=== PATIENT | male | born 1970 | race Caucasian/White ===

== ENCOUNTER 2017-03-05 18:57 | Emergency (ER) | payer OTHER ==
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
--- NOTE | 2017-03-05 21:18 | RAD ---
Indication: Neck injury after fall. CT of the cervical spine was obtained in the axial plane. Sagittal and coronal reconstructed images were obtained. The skull base demonstrates no fracture. The C1 ring is intact. The vertebral bodies appear normal in height. No evidence of fracture is noted. Disc space narrowing at C5-C6 with dorsal and ventral osteophyte formation is noted. No foraminal stenosis is noted. At C6-C7 spondylitic ridge flattens the thecal sac. No central or foraminal stenosis is noted. IMPRESSION: Degenerative disc disease at C5-C6 and C6-C7. No fracture of the cervical spine is noted.
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
[2017-03-05 21:54] VITALS: BP 133/84
== END 2017-03-05 21:53 | disposition home or self-care (01) ==
LOC: ED 18:57
DX: M79.1 Myalgia (principal); M54.2 Cervicalgia; Z04.1 Encounter for examination and observation following transport accident
CPT/HCPCS: 70450; 72125; 99282

== ENCOUNTER 2017-05-17 10:56 | Emergency (ER) | payer OTHER ==
[2017-05-17] MEDS ORDERED: NS 0.9% 1000 ML* 1,000 ML IV ONE (11:18)
[2017-05-17] MEDS ORDERED: Ketorolac INJ* 30 MG/ML 1 ML VIAL IV PUSH ONE (11:21)
[2017-05-17] MEDS ORDERED: HYDROmorphone* 1 MG/ML 1 ML SYR IV SLOW PU ONE (11:21)
[2017-05-17] MEDS ORDERED: Ondansetron INJ* 2 MG/ML VIAL IV ONE (11:22)
--- NOTE | 2017-05-17 11:24 | ED ---
GI/ HPI - HPI Summary HPI Summary: 46M presents with RLQ pain and hematuria for a couple hours. He does have a history of kidney stones. He states this feels like his kidney stones in the past just much worst. He denies any n/v/d/c. He denies any flank pain. He denies any fever. He states pain radiates from RLQ to right testis. He has not taken anything for pain and says that it is a 10/10. Nothing makes it better. He denies any dysuria but admits to frequency. - History of Current Complaint Chief Complaint: EDAbdPain Time Seen by Provider: 05/17/17 11:17 Stated Complaint: ABD PAIN RIGHT SIDE Pain Intensity: 8 - Allergy/Home Medications Allergies/Adverse Reactions: Allergies Allergy/AdvReac Type Severity Reaction Status Date / Time Unable to Obtain Allergy Verified 05/17/17 11:02 PMH/Surg Hx/FS Hx/Imm Hx Endocrine/Hematology History: Denies: Hx Anticoagulant Therapy GI History: Reports: Hx Ulcer History: Reports: Hx Kidney Stones Infectious Disease History: No Infectious Disease History: Denies: Traveled Outside the [place] in Last 30 Days - Family History Known Family History: Positive: None, Unknown Negative: Cardiac Disease - Social History Alcohol Use: None Hx Substance Use: Yes Substance Use Type: Reports: Marijuana Hx Tobacco Use: Yes Smoking Status (MU): Heavy Every Day Tobacco Smoker Review of Systems Negative: Fever Negative: Chest Pain Negative: Shortness Of Breath Positive: Abdominal Pain - RLQ pain. Negative: Vomiting, Diarrhea, Nausea Positive: hematuria. Negative: flank pain All Other Systems Reviewed And Are Negative: Yes Physical Exam Triage Information Reviewed: Yes Vital Signs On Initial Exam: Initial Vitals Temp Pulse Resp BP Pulse Ox 98.5 F 60 20 139/71 100 05/17/17 10:58 05/17/17 10:58 05/17/17 10:58 05/17/17 10:58 05/17/17 10:58 Vital Signs Reviewed: Yes Appearance: Positive: Pain Distress Skin: Positive: Warm, Dry Head/Face: Positive: Normal Head/Face Inspection Eyes: Positive: Normal, Conjunctiva Clear Respiratory/Lung Sounds: Positive: Clear to Auscultation, Breath Sounds Present Cardiovascular: Positive: Normal, RRR Abdomen Description: Positive: Soft, Other: - tenderness in RLQ. Negative: CVA Tenderness (R), CVA Tenderness (L) Bowel Sounds: Positive: Present - [place] Coma Scale Coma Scale Total: 15 Diagnostics - Vital Signs Vital Signs Temp Pulse Resp BP Pulse Ox 05/17/17 10:58 98.5 F 60 20 139/71 100 - Laboratory Result Diagrams: 05/17/17 11:25 05/17/17 11:25 Lab Statement: Any lab studies that have been ordered have been reviewed, and results considered in the medical decision making process. - CT abd CT Interpretation: Positive (See Comments) - IMPRESSION: RIGHT HYDRONEPHROSIS WITH MULTIPLE CALCULI IN THE RIGHT RENAL COLLECTING SYSTEM. THERE IS A 2 MM CALCULI IN THE RIGHT URETEROVESICULAR JUNCTION WITH MILD HYDROURETER. APPENDIX APPEARS NORMAL. CT Interpretation Completed By: Radiologist - Ultrasound No standard instances Ultrasound Interpretation: Positive (See Comments) Ultrasound Interpretation Completed By: Radiologist Re-Evaluation - Re-Evaluation First Eval Re-Evaluation Time: 12:45 Change: Improved Comment: feeling well enough to go home GIGU Course/Dx - Course Course Of Treatment: 46M presents with RLQ pain and hematuria for a couple hours. He does have a history of kidney stones. He states this feels like his kidney stones in the past just much worst. He denies any n/v/d/c. He denies any flank pain. He denies any fever. He states pain radiates from RLQ to right testis. on exam tender in RLQ. neg CVA tenderness. got CT shows 2mm stone. testicular u/s normal. labs no infection u/a. will treat with pain medication and flomax and have full up with urology. patient understands and agrees with plan. - Diagnoses Differential Diagnoses - Male: Appendicitis, Urethritis, Urinary Tract Infection Provider Diagnoses: Kidney stones Discharge - Discharge Plan Condition: Good Disposition: HOME Prescriptions: Ondansetron ODT TAB* [Zofran 4 MG Odt TAB*] 4 mg PO Q6H PRN #15 tab.odt PRN Reason: Nausea Tamsulosin CAP* [Flomax CAP*] 0.4 mg PO DAILY #7 cap oxyCODONE/Acetamin 5/325 MG* [Percocet 5/325 TAB*] 1 tab PO Q4H PRN #25 tab MDD 6 PRN Reason: Pain Patient Education Materials: Kidney Stones (ED) Referrals: Henry ABDIC,Lety Soto [Primary Care Provider] - Checo Lopez MD [Medical Doctor] - Additional Instructions: Take ibuprofen every 6 hours and narcotic as needed every 6 hours Take Zofran every 6 hours for nausea as needed Take Flomax daily starting tomorrow, first dose given in ED until stone expelled , make sure stand up slowly Follow up with urology, call office tomorrow for appointment Strain urine until collect stone Return to ED if unable to manage pain at home, develop fever, or any new or worsening symptoms
[2017-05-17 11:36] LABS: Hematocrit 46 % (42-52); Mean Corpuscular HGB Conc 32 g/dl (31-36); Mean Corpuscular Hemoglobin 28 pg (27-31); Mean Corpuscular Volume 85 fL (80-94); Mean Platelet Volume 8 um3 (7.4-10.4); Red Blood Count 5.45 10^6/ul (4.0-5.4); Red Cell Distribution Width 16 % (10.5-15); White Blood Count 11.6 10^3/ul (3.5-10.8)
[2017-05-17 11:50] LABS: Urine Bacteria Absent (Absent); Urine Bilirubin Negative (Negative); Urine Glucose Negative (Negative); Urine Nitrite Negative (Negative)
[2017-05-17 11:52] LABS: Albumin 4.3 g/dL (3.2-5.2); BUN/Creatinine Ratio 10.8 (8-20); Calcium 9.3 mg/dL (8.6-10.3); EGFR African American 92.5 (>60); Globulin 2.9 g/dL (2-4); Potassium 4.2 mmol/L (3.5-5.0); Total Bilirubin 0.7 mg/dL (0.2-1.0); Total Protein 7.2 g/dL (6.4-8.9)
--- NOTE | 2017-05-17 11:54 | RAD ---
Indication: Right lower quadrant pain, hematuria. CT of the abdomen and pelvis was performed without oral or IV contrast administration. Coronal and sagittal reconstructed images were obtained. The lung bases demonstrate no pleural fluid, nodules or masses. Heart is of normal size without evidence of pericardial effusion. Liver is normal in size. No focal lesions or intrahepatic duct dilatation is noted. The pancreas demonstrates no mass or pancreatic ductal dilatation. The spleen is normal in size. The common duct is not dilated. The gallbladder demonstrates no definite calcified gallstones, pericholecystic fluid or wall thickening. No adrenal lesions are noted. There are multiple calcifications in both kidneys. Mild hydronephrosis of the right kidney with mild hydroureter is noted. There is a 2 mm calculi in the right ureterovesicular junction. CT of the pelvis otherwise is unremarkable. The urinary bladder is partially collapsed. Appendix is visualized and is normal. IMPRESSION: RIGHT HYDRONEPHROSIS WITH MULTIPLE CALCULI IN THE RIGHT RENAL COLLECTING SYSTEM. THERE IS A 2 MM CALCULI IN THE RIGHT URETEROVESICULAR JUNCTION WITH MILD HYDROURETER. APPENDIX APPEARS NORMAL.
[2017-05-17] MEDS ORDERED: Tamsulosin CAP* 0.4 MG PO ONE (12:08)
--- NOTE | 2017-05-17 12:26 | RAD ---
INDICATION: Right testicular pain. COMPARISON: There are no prior studies available for comparison. TECHNIQUE: Multiple real-time images of the testicles were obtained including color Doppler images and Doppler tracings. FINDINGS: The testicles are normal in size, shape and echogenicity. The right testicle measured 4.3 x 2.0 x 2.9 cm and the left testicle measured 4.5 x 1.9 x 2.8 cm. No intratesticular mass is seen. There is symmetric vascular flow within both testicles. The epididymides are normal in size and vascularity. There is a small 0.2 cm left epididymal head cyst. There are small bilateral complex hydroceles. IMPRESSION: 1. NO EVIDENCE FOR TESTICULAR TORSION OR EPIDIDYMITIS. 2. SMALL BILATERAL HYDROCELES. 3. SMALL LEFT EPIDIDYMAL CYST.
[2017-05-17 13:02] VITALS: BP 132/76
== END 2017-05-17 13:02 | disposition home or self-care (01) ==
LOC: ED 10:56
DX: N20.0 Calculus of kidney (principal); R10.31 Right lower quadrant pain; R31.9 Hematuria, unspecified; F17.210 Nicotine dependence, cigarettes, uncomplicated
CPT/HCPCS: 36415; 74176; 76870; 80053; 81003; 81015; 83690; 85025; 86141; 87086; 96374; 96375; 99282; J1170; J1885; J2405

== ENCOUNTER 2018-12-19 11:42 | Emergency (ER) | payer BC, OTHER ==
[2018-12-19 12:05] VITALS: BP 127/73
--- NOTE | 2018-12-19 12:22 | UC ---
Complaint Male HPI - History of Current Complaint Chief Complaint: UCAbdominalPain Stated Complaint: ABD/GROIN PAIN Time Seen by Provider: 12/19/18 12:17 Pain Intensity: 6 - Allergies/Home Medications Allergies/Adverse Reactions: Allergies Allergy/AdvReac Type Severity Reaction Status Date / Time Unable to Assess Allergy Verified 11/27/17 11:47 PMH/Surg Hx/FS Hx/Imm Hx Other History Of: Negative For: Anticoagulant Therapy - Surgical History Surgical History: None - Family History Known Family History: Positive: None, Unknown Negative: Cardiac Disease - Social History Alcohol Use: None Substance Use Type: Marijuana Substance Use Comment - Amount & Last Used: joint daily Smoking Status (MU): Heavy Every Day Tobacco Smoker Household Exposure Type: Cigarettes Physical Exam Vital Signs: Initial Vital Signs Temp 98.7 F 12/19/18 11:57 Pulse 77 12/19/18 11:57 Resp 18 12/19/18 11:57 BP 127/73 12/19/18 11:57 Pulse Ox 98 12/19/18 11:57 Discharge - Discharge Plan Referrals: Henry OATES,Lety Soto [Primary Care Provider] -
[2018-12-19] MEDS ORDERED: Ketorolac INJ* 30 MG/ML 1 ML VIAL IM ONE (12:48)
--- NOTE | 2018-12-19 13:09 | UC ---
Abdominal Pain Male HPI - HPI Summary HPI Summary: Patient presents to urgent care with reports of lower abdominal pain. Patient states it started little bit last week but seemed to get better. Patient states since yesterday pain is become more severe. Patient states pain is intermittent but never goes away completely. Patient states he's a lot of pressure over his bladder right >left. Patient states he did have some hematuria. Patient without any nausea vomiting. No back pain. Patient states he took Motrin approximately 1 AM with little effect. Patient states that a history of renal stones and this feels similar. Never had had a procedure to pass the stone. No fevers, chills, rash. Patient has any pain in his testicles. Patient dizziness headache is a pressure on his bladder. Patient denies any penile discharge. Medications reviewed this visit. - History of Current Complaint Chief Complaint: UCAbdominalPain Stated Complaint: ABD/GROIN PAIN Time Seen by Provider: 12/19/18 12:17 Hx Obtained From: Patient Pain Intensity: 6 - Allergies/Home Medications Allergies/Adverse Reactions: Allergies Allergy/AdvReac Type Severity Reaction Status Date / Time Unable to Assess Allergy Verified 11/27/17 11:47 PMH/Surg Hx/FS Hx/Imm Hx Previously Healthy: Yes GI/ History: Kidney Stones Other History Of: Negative For: Anticoagulant Therapy - Surgical History Surgical History: None - Family History Known Family History: Positive: None, Unknown, Non-Contributory Negative: Cardiac Disease - Social History Lives: With Family Alcohol Use: None Substance Use Type: Marijuana Substance Use Comment - Amount & Last Used: joint daily Smoking Status (MU): Heavy Every Day Tobacco Smoker Household Exposure Type: Cigarettes Review of Systems All Other Systems Reviewed And Are Negative: Yes Skin: Positive: Negative Genitourinary: Positive: Hematuria Is Patient Immunocompromised?: No Physical Exam - Summary Physical Exam Summary: Vital Signs Reviewed: Yes A+Ox3, discomfort Eyes: Conjunctiva Clear, HANS. EOM intact and full ENT: Hearing grossly normal TM x 2 clear, mmoist, uvula midline, no exudate, no erythema Neck: Positive: Supple Respiratory: Positive: No respiratory distress, No accessory muscle use + CTA throughout no w/r Cardiovascular: RRR nl s1, s2 no m/r CBT <2 sec abd soft + BS non distended mild lower abd, suprapubic pain. no guarding, no rebound soft no CVA Musculoskeletal Exam: ZAMORA x 4 without difficulty Strength Intact, ROM Intact Neurological: Positive: Alert, + sensation throughout Psychological: Positive: Normal Response To Family Skin: Positive: no rash, no ecchymosis Triage Information Reviewed: Yes Vital Signs: Initial Vital Signs Temp 98.7 F 12/19/18 11:57 Pulse 77 12/19/18 11:57 Resp 18 12/19/18 11:57 BP 127/73 12/19/18 11:57 Pulse Ox 98 12/19/18 11:57 Diagnostics - Radiology No standard instances Radiology Interpretation Completed By: Radiologist - Patient Name: CHAPINCITO YEPEZ JR Medical Record#: [id number] Ordering Physician: Kia Sprague MD Acct.#: [id number] : 1970 Age: 48 Sex: M Location: [facility] Exam Date: 12/19/18 1248 ADM Status: [facility] ER Order Information: CT ABD/PEL W/O Accession Number: [id number] CPT: 90966 Indication: Lower abdominal pain. CT of the abdomen and pelvis was performed without oral or IV contrast administration. The lung bases demonstrate no pleural fluid, nodules or masses. Heart is of normal size without pericardial effusion. The liver is normal in size. No focal lesions or intrahepatic duct dilatation is noted. All the gallbladder demonstrates no calcified gallstones. No pericholecystic fluid or wall thickening is noted. The spleen is normal in size. The pancreas demonstrates no mass or pancreatic duct dilatation. No adrenal masses are noted. No hydronephrosis is noted. No retroperitoneal lymphadenopathy is noted. No dilated loops of bowel are noted. The kidneys demonstrates nonobstructing calculi in both kidneys. No retroperitoneal adenopathy is noted. No dilated loops of bowel are noted. The urinary bladder is otherwise unremarkable. CT of the pelvis demonstrates no hernias. The appendix is visualized and is unremarkable. No dilated loops of bowel are noted. IMPRESSION: Bilateral renal calculi without hydronephrosis. Normal appendix. <Electronically signed by Chana Reynoso MD in [place]> 12/19/18 1331 Dictated By: Chana Reynoso MD Dictated Date/Time: 12/19/18 1331 Transcribed Date/Time: 12/19/18 1313 Copy to: CC:Lety Figueroa NP; Kia Sprague MD Imaging - [facility] - [facility] Imaging - [facility] [id number] [place] [id number] [place] [id number] ph ([phone]) ph ) ph ([phone]) This report is only to be considered final once signed by the Provider(s) as displayed in the "<Electronically Signed by >" field (s). Absence of a signature indicates the report is in a draft status and still needs to be finalized. In the event this document was created by someone other than the signing Provider, the individual initiating the document will be listed in the "Entered by:" or "Dictated by:" oneal. of Re-Evaluation - Re-Evaluation First Eval Change: Improved - Pain improved following Toradol. Reviewd CT no visible stone , pt may have passed ffered pt transfer to ED for further eval - states feeling better and will go home strict return precautions discussed pt comfortable and in agreement with plan Abd Pain Male Course/Dx - Course Course Of Treatment: Patient presents with approximately 20 hr was intense waxing and waning lower abdominal pain. Patient states it's over his bladder, has pressure. Patient denies nausea vomiting. Patient with mild back pain patient with a history of renal stones states it feels the same. Patient reports he has had hematuria. Patient took Motrin work with this morning but nothing since. Patient denies any pain in his testicles or penile discharge. We'll give a dose of him Toradol. We'll check a CT. We'll check a urine. Patient with no obvious causing some emergency department for further evaluation. Patient comfortable in agreement with plan. - Differential Dx/Clinical Impression Provider Diagnosis: Flank pain Discharge - Sign-Out/Discharge Documenting (check all that apply): Patient Departure All imaging exams completed and their final reports reviewed: Yes - Discharge Plan Condition: Stable Disposition: HOME Patient Education Materials: Hematuria (ED), Flank Pain (ED) Referrals: Henry OATESLety [Primary Care Provider] - Additional Instructions: - Stay well hydrated. Drink plenty of non-alcoholic non-caffinated beverages - Okay to alternate ibuprofen (Advil, Motrin) 600mg and Tylenol 1000mg every 3 hours for pain or fever. Take with food. Do NOT take for more than 4-5 days. - If you have increased or uncontrolled pain, vomiting, or any other concerns it is recommended you go to the emergency department for further evaluation and treatment. As discussed, you have several stones in you kidneys but none visible in your bladder. It is possible that you passed a kidney stone or have a small stone not visible on CT scan - Billing Disposition and Condition Condition: STABLE Disposition: Home
== END 2018-12-19 14:29 | disposition home or self-care (01) ==
LOC: UCEAST 11:42
DX: R10.30 Lower abdominal pain, unspecified (principal); R31.9 Hematuria, unspecified; R42 Dizziness and giddiness; R51 Headache; N50.819 Testicular pain, unspecified; F17.210 Nicotine dependence, cigarettes, uncomplicated; Z87.442 Personal history of urinary calculi
CPT/HCPCS: 74176; 81003; 96372; 99211; G0463; J1885